=== PATIENT | female | born 1935 | race Caucasian/White ===

== ENCOUNTER 2016-10-14 01:01 | Day surgery (SDC) | payer MEDICARE, MEDICAID ==
[2016-10-14] VITALS (13 sets, daily range): BP systolic 118–149; BP diastolic 54–96; PULSE 70–88; RESP 16–24; O2SAT 92–96
[~2016-10-14] VITALS: Ht 154.9 cm; Wt 82.5 kg
[~2016-10-14 01:01] MED LIST: ALBU8.5H4 IH; ASPI325T32 PO; BUDE8.6S NS; CITA10TA9 PO; DETROL LA4 M1 PO; DILT240C89 PO; HYDR-3091 PO; HYDR-3825 PO; LEVO137T2 PO; NITR0.4T6 SL
[2016-10-14] MEDS ORDERED: 0.9% Sodium Chloride 1,000 ML IV ONE (09:30)
[2016-10-14 11:35] LABS: EOSINOPHILS % (AUTO) 3.1 % (0-5); MONOCYTES % (AUTO) 8.3 % (4-12); Mean Corpuscular Hemoglobin 28.9 pg (27.0-35.0); Mean Corpuscular Volume 88.8 fL (81-100); NEUTROPHILS % (AUTO) 61.1 % (40-74); Platelet Count 266 bil/L (150-400)
--- NOTE | 2016-10-14 12:25 | NUR ---
Patient admitted to [facility] for heart cath with Dr Boss.She is short of breath ambulating from bathroom to bed.Pt states that she is incontinent of urine and has a lot of urgency.She has been off detrol x 2months.She also notes soft stools and difficulty geting herself clean.Dick inserted without difficulty, with return clear digna urine.
[2016-10-14] MEDS ORDERED: Heparin 5,000 Units/500 mL NS Premix IV ONE (13:14)
[2016-10-14] MEDS ORDERED: Heparin 1,000 Unit/mL 10 mL Inj ONE (13:14)
[2016-10-14] MEDS ORDERED: Nitroglycerin 50,000 mcg/250 mL D5W Premix IV ONE (13:14)
[2016-10-14] MEDS ORDERED: Heparin 1,000 Units/500 mL NS Premix IV ONE (13:14)
[2016-10-14] MEDS ORDERED: fentaNYL-PF 50 mCg/mL 2 mL Inj ONE (13:47)
--- NOTE | 2016-10-14 14:22 | ABG ---
DateTimeAnalyzed 14:17:00 -_ pH ____7.337 - 7.350 7.450 pCO2 ___50.4__ -mmHg 35.0 45.0 pO2 ___86.8__ -mmHg 69.0 116 HCO3- ___26.3__ -mmol/L ABE ____0.3__ -mmol/L tHb ___13.7__ -g/dL O2Hb ___94.8__ -% COHb ____0.8__ -% MetHb ____0.8__ -% sO2 ___96.3__ -% FIO2 ___21.0__ -% Drawn By NB - Date/Time Notified____ 14:21:00 -_ Notified By NB - Notified Whom DR VADERAH - B 764 -mmHg tO2 ___18.3__ -Vol% Will test N/A -
--- NOTE | 2016-10-14 14:27 | ABG ---
DateTimeAnalyzed 14:21:00 -_ pH ____7.328 - pCO2 ___56.7__ -mmHg pO2 ___36.4__ -mmHg HCO3- ___28.9__ -mmol/L ABE ____2.1__ -mmol/L tHb ___14.1__ -g/dL O2Hb ___62.4__ -% COHb ____0.8__ -% MetHb ____1.0__ -% sO2 ___63.5__ -% FIO2 ___21.0__ -% Drawn By NB - Date/Time Notified____ 14:27:00 -_ Notified Whom DR VADERAH - B 764 -mmHg tO2 ___12.3__ -Vol% Will test N/A -
--- NOTE | 2016-10-14 15:13 | CS94 ---
[address] [address] DIAGNOSTIC CARDIAC CATHETERIZATION PATIENT: TITUS CHURCH : 1935 MR#: [id number] ADMIT: 10/14/2016 JOB ID: [id number] SERVICE DATE:10.14.16 PROCEDURE: 1. Right and left heart catheterization. 2. Selective coronary angiography. PROCEDURAL DETAILS: The reader is referred to the procedure log for complete details. Briefly, a venous sheath was placed in the right femoral vein and a long arterial sheath in the right femoral artery. INDICATION: Aortic stenosis. ANGIOGRAPHIC FINDINGS: 1. Left main: Normal. No significant disease. 2. Circumflex nondominant, free of any significant disease. 3. Right coronary artery is a dominant vessel. It is free of any significant disease. 4. Left heart catheterization revealed an LVEDP of 16. There was a 37.9 mm mean gradient across the aortic valve. HEMODYNAMICS: PA pressure was 38/7, mean of 23. Pulmonary capillary wedge pressure of 12. RV pressure was 38 over 4. RA pressure was a mean of 7 with an A-wave of 9 and a V-wave of 11. Aortic pressure was 132/68, mean of 92. PA sat was 63. FA sat was 97. Thermodilution cardiac output was 3.8 L/minute. Cardiac index was 2.1 L/minute/m2. The calculated aortic valve area was 0.76 cm2. In summary, this lady does not have any significant coronary artery disease. She has critical aortic stenosis. Note is also made of moderate calcification in the aorta and the AV groove. She will be referred to cardiothoracic surgeons at [facility]. JODY
--- NOTE | 2016-10-14 16:04 | NUR ---
Handoff to Alfred Villeda R.N. who will assume care of patient.Right groin remains stable, she has eaten sandwich and fruit.
[2016-10-14] MEDS ORDERED: Sodium Chloride LOK Flush 10 mL Syringe IVFLUSH SCH (16:30)
--- NOTE | 2016-10-14 19:37 | NUR ---
Care assumed/Discharge Care assumed at 1800. VSS. Right groin without bleeding or hematoma. Denies pain. IVF at 100ml/hr. Bedrest complete at 1900 up and ambulated in baker without change in groin. Mild SOB on exertion but states not worse than usual. Discharge instructions given, see sheets. Verbalizes understanding. IVs discontinued intact. Discharged ambulatory with friend and all belongings at 1930 in no acute distress.
== END 2016-10-14 23:59 | disposition home or self-care (01) ==
LOC: SOUO 01:01 → EDSTATUS 11:59 → SOUO 23:59
PROVIDERS: ATTEND Internal Medicine Cardiovascular Disease
DX: I35.0 Nonrheumatic aortic (valve) stenosis (principal); I70.0 Atherosclerosis of aorta; I48.91 Unspecified atrial fibrillation; I10 Essential (primary) hypertension; E03.9 Hypothyroidism, unspecified; F32.9 Major depressive disorder, single episode, unspecified; K21.9 Gastro-esophageal reflux disease without esophagitis; Z87.891 Personal history of nicotine dependence; J45.909 Unspecified asthma, uncomplicated; Z79.82 Long term (current) use of aspirin
CPT/HCPCS: 80048; 85025; 93460; 99152; 99153; C1766; C1769; J1200; J1644; J2060; J2250; J3010; J7030; Q9967